=== PATIENT | male | born 1975 | race Caucasian/White ===

== ENCOUNTER 2018-06-02 13:52 | Observation (INO) | payer OTHER, SELFPAY ==
[2018-06-02] VITALS (7 sets, daily range): BP systolic 104–152; BP diastolic 64–89; PULSE 75–90; RESP 15–20; TEMP 36.7–36.8; O2SAT 97–99; BMI 23.5
--- NOTE | 2018-06-02 14:07 | DI.CT.S_ITS ---
PROCEDURE: CT HEAD/BRAIN WO CON INDICATIONS: 30 second episode of being unable to talk this AM TECHNIQUE: Noncontrast 4.5 mm thick angled axial sections acquired from the foramen magnum to the vertex, with coronal and sagittal reformats. For radiation dose reduction, the following was used: automated exposure control, adjustment of mA and/or kV according to patient size. COMPARISON: None. FINDINGS: Image quality: Excellent. CSF spaces: Basal cisterns are patent. No extra-axial fluid collections. Ventricles are normal in size and shape. Brain: No midline shift. No intracranial masses or hemorrhage. Sauer-white matter interface is normal. Skull and face: Calvarium and visualized facial bones are intact, without suspicious lesions. Sinuses: Visualized sinuses and mastoids are clear. IMPRESSION: No acute intracranial hemorrhage is seen. Unremarkable noncontrast head CT. If there is strong clinical suspicion for an acute stroke, please consider an MRI for further evaluation, as it is more sensitive (assuming that there is no contraindication to MRI). Dictated by: Odell Ying M.D. on 06/02/2018 at 13:27 Approved by: Odell Ying M.D. on 06/02/2018 at 13:28
--- NOTE | 2018-06-02 14:14 | ED.NEUROSD ---
HPI - Neuro Symptoms/Deficit General Chief Complaint: Neuro Symptoms/Deficit Stated Complaint: SUSPECTED TIA THIS MORNING Time Seen by Provider: 06/02/18 14:13 Source: patient Mode of arrival: ambulatory Limitations: no limitations History of Present Illness HPI Narrative: Patient is an otherwise healthy 42-year-old male here for evaluation of concerns for a TIA earlier this morning. Patient states that he was talking on the phone to a client when he suddenly had an episode where he had problems speaking. He also states that he felt very confused at this time. He states that he knew the words he wanted to say but was unable to speak them. It was also reported that the patient's thought that he was slurring his words. This came from the patient as because his was not at bedside. Patient states that the whole episode lasted less than 1 min. He gave the phone that he was talking on to his . States that he laid down on the ground. He gradually all of his symptoms resolved. States that he has never had anything like this before. States that during the time he had no other symptoms such as headache, vertigo, chest pain, palpitations, shortness of breath, vision changes. No numbness or tingling in upper lower extremities. Related Data Home Medications Medication Instructions Recorded Confirmed Vitamin D3 1 cap PO DAILY 06/02/18 06/02/18 ibuprofen 200 mg PO PRN PRN 06/02/18 06/02/18 loratadine [Claritin] 10 mg PO DAILY PRN 06/02/18 06/02/18 magnesium 1 tab PO DAILY 06/02/18 06/02/18 Allergies Allergy/AdvReac Type Severity Reaction Status Date / Time No Known Drug Allergies Allergy Verified 06/02/18 14:01 Review of Systems Constitutional Denies fatigue, Denies fever(s) and Denies headache(s) ENT Ears, Nose, Mouth, and Throat: Denies vertigo, Denies dizziness and Denies headache(s) Cardiovascular Denies chest pain, Denies palpitations and Denies dyspnea Respiratory Denies dyspnea Gastrointestinal Gastrointestinal: Denies abdominal pain, Denies nausea and Denies vomiting Genitourinary Denies dysuria Musculoskeletal Denies myalgias and Denies arthralgias Integumentary/Breasts Denies lesions and Denies rash Neurologic Reports abnormal speech, Reports confusion, Denies vertigo, Denies dizziness, Denies headache(s), Denies convulsions and Denies seizure-like activity Psychiatric Reports confusion Endocrine Denies fatigue and Denies palpitations Hematologic/Lymphatic Denies easy bleeding and Denies easy bruising PFS Medical History Bulge of cervical disc without myelopathy (Acute) Migraine headache (Acute) Vasovagal syncope (Acute) Family History Grandmother Cancer Vascular disease Social History household members: spouse Smoking Status: Never smoker Exam Initial Vital Signs Initial Vital Signs: Vital Signs Temperature 98.2 F 06/02/18 13:55 Pulse Rate 90 06/02/18 13:55 Respiratory Rate 18 06/02/18 13:55 Blood Pressure 152/89 H 06/02/18 13:55 Pulse Oximetry 98 06/02/18 13:55 Const General: cooperative, healthy appearing, comfortable, well developed, well groomed and acute distress Orientation: alert, awake and oriented x3 HENMT Head: normal to inspection and normocephalic Eyes Pupils: PERRL EOM: EOM intact bilaterally Resp Effort & Inspection: normal respiratory effort Auscultation: clear to auscultation bilaterally Cardio Rate: regular rate Rhythm: regular rhythm Pulses: radial pulses present GI Inspection: non-distended Palpation: soft, No firm and No tender Back/Spine/Pelvis Back: No CVA tenderness Skin Lesions: no lesions Neuro General: alert, awake and oriented x3 Cranial Nerves: CN's II-XI intact bilaterally Cognition: normal cognition Speech: speech normal Gait: normal gait Motor: muscle tone normal throughout Sensory Exam: no sensory deficits noted Extrem General: normal to inspection and capillary refill normal Psych Appearance: grossly normal and well kempt Course Orders Ordered: ED Orders 06/02/18 14:07 CT head/brain wo con Stat 06/02/18 14:30 Complete Blood Count AUTO DIFF Stat Comprehensive Metabolic Panel Stat Lipase Stat 06/02/18 14:44 EKG-12 Lead Stat 06/02/18 17:07 Education, smoking cessation ONGOING 06/03/18 05:00 Lipid Panel Routine Thyroid Stimulating Hormone Routine Acetaminophen (Tylenol) 650 mg PO Q6HR PRN PRN Reason: As Needed for Fever/Mild Pain Hydrocodone Bitart/Acetaminophen ([place] 5/325) 1 tab PO Q4HR PRN PRN Reason: Pain, Moderate (4-6) Aspirin (Aspirin Ec) 325 mg PO DAILY [facility] Enoxaparin Sodium (Lovenox) 40 mg SUBCUT DAILY [facility] Dextrose/Sodium Chloride (Dextrose 5%-0.45% Ns) 1,000 mls @ 100 mls/hr IV CONT TIERA Last Admin: 06/02/18 17:36 Dose: 100 mls/hr Ondansetron HCl (Zofran) 4 mg IV Q8HR PRN PRN Reason: Nausea And Vomiting Discontinued Medications Aspirin (Aspirin) 325 mg PO NOW ONE Stop: 06/02/18 15:32 Last Admin: 06/02/18 15:43 Dose: 325 mg Vital Signs - 8 hr 06/02/18 13:55 06/02/18 14:30 06/02/18 15:30 Temperature 98.2 F Pulse Rate 90 76 77 Respiratory Rate 18 15 16 Blood Pressure 152/89 H Blood Pressure [Left Arm] 145/87 H 104/84 Pulse Oximetry 98 98 99 06/02/18 17:10 06/02/18 17:21 06/02/18 19:40 Temperature 98.2 F 98.2 F 98.1 F Pulse Rate 75 75 80 Respiratory Rate 20 20 20 Blood Pressure 144/86 H 144/86 H 121/64 Blood Pressure [Left Arm] Pulse Oximetry 98 99 97 MDM - Neuro Symptoms/Deficit Lab Data Attestation: I reviewed the patient's lab results. Result diagrams: 06/02/18 14:30 06/02/18 14:30 Lab Results 06/02/18 06/02/18 Range/Units 14:30 14:30 WBC 6.1 (4.5-11.0) X10^3/uL RBC 4.87 (4.5-5.9) X10^6/uL Hgb 14.7 (13.5-17.5) g/dL Hct 43.5 (41-53) % MCV 89.4 (80-100) fL MCH 30.2 (26-34) PG MCHC 33.7 (30-36) % RDW 13.8 (11.6-14.8) % Plt Count 208 (150-400) X10^3/uL Neut % (Auto) 72.7 (50-75) % Lymph % (Auto) 17.9 L (25-40) % [place] % (Auto) 7.6 (3-14) % Eos % (Auto) 0.9 L (2-4) % Baso % (Auto) 0.9 (0-2) % Neut # (Auto) 4500 (1039-7938) /uL Sodium 145 (137-145) mmol/L Potassium 4.0 (3.4-5.1) mmol/L Chloride 103 (98-107) mmol/L Carbon Dioxide 31 (22-32) mmol/L BUN 21 H (9-20) mg/dL Creatinine 0.80 (0.66-1.25) mg/dL Estimated GFR > 60.0 (>60) mL/min BUN/Creatinine Ratio 26.3 H (6-22) Glucose 90 (70-100) mg/dL Calcium 9.3 (8.4-10.2) mg/dL Total Bilirubin 0.6 (0.2-1.3) mg/dL AST 26 (17-59) IU/L ALT 34 (21-72) IU/L Alkaline Phosphatase 45 (38-126) U/L Total Protein 7.0 (6.3-8.2) g/dL Albumin 4.6 (3.5-5.0) g/dL Globulin 2.4 (1.7-4.1) g/dL Albumin/Globulin Ratio 1.9 (1.0-2.8) Lipase 109 (23-300) U/L Imaging Data CT scan - head: Radiologist's impression: PROCEDURE: CT HEAD/BRAIN WO CON INDICATIONS: 30 second episode of being unable to talk this AM TECHNIQUE: Noncontrast 4.5 mm thick angled axial sections acquired from the foramen magnum to the vertex, with coronal and sagittal reformats. For radiation dose reduction, the following was used: automated exposure control, adjustment of mA and/or kV according to patient size. COMPARISON: None. FINDINGS: Image quality: Excellent. CSF spaces: Basal cisterns are patent. No extra-axial fluid collections. Ventricles are normal in size and shape. Brain: No midline shift. No intracranial masses or hemorrhage. Sauer-white matter interface is normal. Skull and face: Calvarium and visualized facial bones are intact, without suspicious lesions. Sinuses: Visualized sinuses and mastoids are clear. IMPRESSION: No acute intracranial hemorrhage is seen. Unremarkable noncontrast head CT. If there is strong clinical suspicion for an acute stroke, please consider an MRI for further evaluation, as it is more sensitive (assuming that there is no contraindication to MRI). Dictated by: Odell Ying M.D. on 06/02/2018 at 13:27 Approved by: Odell Ying M.D. on 06/02/2018 at 13:28 [facility] Narrative Medical decision making narrative: Patient with a completely normal neuro exam the time of my exam. His symptoms today are somewhat concerning for a TIA. He stated that he did realize that he was having problems speaking and was confused. Symptoms all resolved in less than a minute. His head CT was unremarkable. He was given an aspirin here in the emergency department. I did discuss with Dr. Arshad with Internal Medicine or admit for a TIA workup. I did discuss this with the patient who initially had some reservations about being admitted but then agreed to the admission. Discharge Plan Departure Patient Disposition: Admitted as Observation Clinical Impression: TIA (transient ischemic attack) Discharge Date/Time: 06/02/18 17:05 Interventions: ED Discharge Assessment Last Done: 06/02/18 17:04 Admit Date/Time: 06/02/18 16:01 Admit Provider: Lucretia Arshad
[2018-06-02 14:42] LABS: Add Manual Diff / Slide Review NO; Basophils Percent Auto 0.9 % (0-2); Eosinophils Percent Auto 0.9 % (2-4); Hematocrit 43.5 % (41-53); Hemoglobin 14.7 g/dL (13.5-17.5); Lymphocytes Percent Auto 17.9 % (25-40); Mean Corpuscular HGB Conc 33.7 % (30-36); Mean Corpuscular Hemoglobin 30.2 PG (26-34); Mean Corpuscular Volume 89.4 fL (80-100); Monocytes Percent Auto 7.6 % (3-14); Neutrophils Absolute Auto 4500 /uL (3000-5900); Neutrophils Percent Auto 72.7 % (50-75); Platelet Count 208 X10^3/uL (150-400); Red Blood Cell Count 4.87 X10^6/uL (4.5-5.9); Red Cell Distribution Width 13.8 % (11.6-14.8); White Blood Cell Count 6.1 X10^3/uL (4.5-11.0)
[2018-06-02 14:57] LABS: Alanine Aminotransferase 34 IU/L (21-72); Albumin 4.6 g/dL (3.5-5.0); Albumin Globulin Ratio 1.9 (1.0-2.8); Alkaline Phosphatase 45 U/L (38-126); Aspartate Aminotransferase 26 IU/L (17-59); BUN Creatinine Ratio 26.3 (6-22); Bilirubin Total 0.6 mg/dL (0.2-1.3); Blood Urea Nitrogen 21 mg/dL (9-20); Calcium 9.3 mg/dL (8.4-10.2); Carbon Dioxide 31 mmol/L (22-32); Chloride 103 mmol/L (98-107); Estimated Glomerular Filt Rate > 60.0 mL/min (>60); Globulin 2.4 g/dL (1.7-4.1); Glucose 90 mg/dL (70-100); HEMOLYSIS < 15 (0-50); Lipase 109 U/L (23-300); Sodium 145 mmol/L (137-145)
[2018-06-02] MEDS: ASPIRIN 325 MG TABLET PO (15:43)
--- NOTE | 2018-06-02 15:47 | PC.NURSE ---
At home while making a phone call the pt felt as though he was suddenlynot able to follow the conversation nor was he able to get his words out. Pt handed the phone to his . Shortly after sx resolved and then he just felt like he did prior to having a syncopal event. Pt denied any sx upon arrival to ED.
--- NOTE | 2018-06-02 17:13 | P.HP_ITS ---
History of Present Illness Date Patient Seen: 06/02/18 Chief complaint: SUSPECTED TIA THIS MORNING Narrative: The patient is a 42-year-old previously healthy male who was in his usual state of health until earlier this morning. Patient was on the phone standing speaking to a client when he was unable to get the words out. He reports initially he felt a twitch of his right cheek. He then was trying to speak and unable to get the words out. He handed the phone to his . He then laid down for about 30 sec with complete resolution of his symptoms. He had no associated headache. He had no blurred vision or double vision. Patient had no slurring of his speech. He had no numbness tingling or weakness in his arms or legs. He did not lose consciousness. He denies any aura. He has a history of migraine headaches and notes this is very different. He also has a history of vasovagal syncope and states this is different as well. The patient slept fairly well last night. Does report some neck discomfort due to a bulging disc. He has never had these symptoms previously. He had no witnessed tonic-clonic activity. He had no loss of his bowel or bladder function. Patient had a HEAD CT which was unremarkable. Patient History Medical History Bulge of cervical disc without myelopathy (Acute) Migraine headache (Acute) Family & Social History Safety & Behavioral: Feels Safe in Current Yes Environment Tobacco & Substance use: Smoking Status Never smoker alcohol intake frequency holiday/special occasion Substance Use Type marijuana Meds Home Medications Medication Instructions Recorded Confirmed Type Vitamin D3 1 cap PO DAILY 06/02/18 06/02/18 History ibuprofen 200 mg PO PRN PRN 06/02/18 06/02/18 History loratadine [Claritin] 10 mg PO DAILY PRN 06/02/18 06/02/18 History magnesium 1 tab PO DAILY 06/02/18 06/02/18 History Allergies Allergy/AdvReac Type Severity Reaction Status Date / Time No Known Drug Allergies Allergy Verified 06/02/18 14:01 Review of Systems Review of Systems All systems reviewed & are unremarkable except as noted in HPI and below Exam Vital Signs (past 8 hours): - 06/02/18 13:55 06/02/18 14:30 06/02/18 15:30 Temperature 98.2 F Pulse Rate 90 76 77 Respiratory Rate 18 15 16 Blood Pressure 152/89 H Blood Pressure [Left Arm] 145/87 H 104/84 Pulse Oximetry 98 98 99 Oxygen Delivery Method Room Air Narrative Exam Narrative: Pleasant male in No Acute Distress HEENT: NC/AT, PERRLA, EOMI, Oropharynx clear Neck : supple, no adenopathy, thyromegaly, no carotid bruits Lungs: Clear to auscultation CV: RRR nl Sl S2 Abd: soft/ non tender/ non distended, no HSM EXT: no edema Skin: no lesions Neuro: Cranial nerves intact, strength symmetric and equal, sensation in tact, no pronator drift, finger to nose intact, reflexes brisk and equal Psych: no hallucinations, delusions, tics Objective Labs Result Diagrams: 06/02/18 14:30 06/02/18 14:30 Labs: Laboratory Results - last 24 hr 06/02/18 06/02/18 14:30 14:30 WBC 6.1 RBC 4.87 Hgb 14.7 Hct 43.5 MCV 89.4 MCH 30.2 MCHC 33.7 RDW 13.8 Plt Count 208 Neut % (Auto) 72.7 Lymph % (Auto) 17.9 L [place] % (Auto) 7.6 Eos % (Auto) 0.9 L Baso % (Auto) 0.9 Neut # (Auto) 4500 Sodium 145 Potassium 4.0 Chloride 103 Carbon Dioxide 31 BUN 21 H Creatinine 0.80 Estimated GFR > 60.0 BUN/Creatinine Ratio 26.3 H Glucose 90 Calcium 9.3 Total Bilirubin 0.6 AST 26 ALT 34 Alkaline Phosphatase 45 Total Protein 7.0 Albumin 4.6 Globulin 2.4 Albumin/Globulin Ratio 1.9 Lipase 109 Assessment & Plan (1) TIA (transient ischemic attack): Problem details: Will check MRI of brain, MRA of neck, Echo with contrast to r/o PFO will check lipid profile continue Asa Check blood pressure Current visit: Yes Status: Acute (2) History of migraine: Problem details: will follow Current visit: Yes Status: Acute Plan: Assessment/Plan Narrative: Full code Will follow up on studies tomorrow for further recommendations
[2018-06-02] MEDS: DEXTROSE 5%-0.45% NS 1,000 ML 100 ML IV (17:36)
--- NOTE | 2018-06-02 18:32 | PC.NURSE ---
ADMISSION Received pt at approximately 1710 via wheelchair, accompanied by ED LAP MAKER. A&Ox3, no acute neuro deficits noted, speech clear and intact. independent of ADLs. telemetry monitoring maintained. oriented pt to room anc call light.
--- NOTE | 2018-06-03 | DI.MRI.S_ITS ---
PROCEDURE: MR ANGIO NECK W CON INDICATIONS: TIA TECHNIQUE: Axial and sagittal TruFISP through the neck. Coronal dynamic MRA after the administration of contrast in the arterial and venous phases, with rotating 3-dimensional maximum intensity projection (MIP) reformats constructed from subtraction images. COMPARISON: None. FINDINGS: Image quality: Excellent. Carotid system: Great vessels demonstrate a conventional anatomy as they arise from the aortic arch. The origins of the common carotid arteries appear normal. The calibers and courses of the common carotid arteries are likewise normal. The carotid bifurcations appear normal bilaterally. The internal carotid arteries are widely patent up to the [place] of [place]. Posterior circulation: The origins of the vertebral arteries are unremarkable. The more superior portions of the vertebral arteries demonstrate normal course and caliber. Vertebral arteries join to form a normal appearing basilar artery. Miscellaneous: Subclavian arteries are patent throughout. Pre-contrast images through the neck demonstrate no soft tissue abnormalities. IMPRESSION: 1. Normal MR angiogram of the neck. 2. No vascular occlusion, vascular stenosis or vascular dissection. Any quantitative measurements of stenosis were performed using NASCET criteria. Dictated by: Gilda Guzman MD, PhD on 06/03/2018 at 12:15 Approved by: Gilda Guzman MD, PhD on 06/03/2018 at 12:17
--- NOTE | 2018-06-03 | DI.ECHO.S_ITS ---
[facility] +---------+ : : [address] : : : : [id number] : : : : Phone: [phone]+ Echocardiogram Report + + :Name: DEVON LUNDBERG Study Date: 06/03/2018 Height: 76 in : :[facility] Weight: 188 lb : : Gender: Male BSA: 2.2 m2 : :: 1975 Age: 42 yrs BP: 111/66 mmHg: :Reason For Study: TIA : :Ordering Physician: Dana : :Hospitalist Performed By: Nicolle Nicole : :Referring: DAMARI SEWELL : + + Interpretation Summary 1. Normal left ventricular size, wall thickness and systolic function. 2. Normal right ventricular size and systolic function. 3. No valvular pathology appreciated 4. Positive saline contrast study documenting a right to left interatrial shunt. No old study Procedure: A two-dimensional transthoracic echocardiogram with color flow and Doppler was performed. The study quality was technically adequate. A saline contrast injection was performed to assess for cardiac shunting. There is no prior echocardiogram noted for this patient. The patient was in normal sinus rhythm during the exam. Left Ventricle: The left ventricle is normal in size. There is normal left ventricular wall thickness. There is no ventricular septal defect visualized. The ejection fraction is estimated to be 55-60%. No focal wall motion abnormalities appreciated. Diastolic parameters suggest probable normal left ventricular diastolic function and normal filling pressures. Right Ventricle: The right ventricle is normal in size and function. Atria: Both atria are normal in size. Injection of contrast documented an interatrial shunt at rest and with Valsalva. Mitral Valve: The mitral valve is normal in structure and function. There is trace mitral regurgitation. Aortic Valve: The aortic valve is trileaflet. The aortic valve opens well. No aortic regurgitation is present. Tricuspid Valve: The tricuspid valve leaflets are thin and pliable. No tricuspid regurgitation. Pulmonary artery pressures cannot be estimated because of the lack of a measurable TR jet velocity. Pulmonic Valve: The pulmonic valve is not well seen, but is grossly normal. Great Vessels: The aortic root is at the upper limits of normal in size. The ascending aorta is at the upper limits of normal in size. The aortic arch is normal in size. The pulmonary is not well visualized. The IVC is of normal diameter and collapses greater than 50% with a sniff. This suggests a low right atrial pressure of 3 mm Hg. Pericardium/ Pleura There is no pericardial effusion. MMode/2D Measurements & Calculations LVIDd: 4.4 cm LVOT diam: 2.5 cm LVIDs: 3.2 cm Ao root diam: 4.0 cm FS: 26.6 % asc Aorta Diam: 3.5 cm IVSd: 0.71 cm Ao Arch Diam (Prox Trans): 2.7 cm LVPWd: 0.93 cm LV lopez. diameter/BSA (cm/m^2): 2.0 LV sys. diameter/BSA (cm/m^2): 1.5 LA A2 area: 15.9 cm2 RA long axis: 4.9 cm LA A4 area: 15.0 cm2 RA area: 14.7 cm2 LA length (vol): 4.6 cm RA vol: 37.7 ml LA vol: 44.7 ml RA : 17.5 ml/m2 LA vol index: 20.7 ml/m2 IVC diam: 1.8 cm RVD1 (basal): 2.9 cm TAPSE: 2.6 cm Doppler Measurements & Calculations Ao V2 max: 111.5 cm/sec LVOT Max Rafal: 98.9 cm/sec Ao V2 mean: 73.7 cm/sec LV V1 max P.9 mmHg Ao max P.0 mmHg LV V1 VTI: 18.3 cm Ao mean P.5 mmHg VICKY(I,D): 5.1 cm2 Ao V2 VTI: 18.0 cm VICKY(V,D): 4.4 cm2 sev ratio: 1.0 VICKY indexed to BSA (cm^2/m^2): 2.4 MV E max rafal: 63.1 cm/sec PA V2 max: 73.4 cm/sec MV A max rafal: 67.8 cm/sec PA V2 mean: 54.9 cm/sec MV E/A: 0.93 PA mean P.3 mmHg Med Peak E' Rafal: 9.6 cm/sec PA Accel Time: 0.12 sec E/E' med: 6.6 Lat Peak E' Rafal: 11.8 cm/sec E/E' lat: 5.3 E/e' average: 6.0 MV dec time: 0.14 sec MV P1/2t: 41.9 msec MV P1/2t max rafal: 63.1 cm/sec MVA(P1/2t): 5.3 cm2 Reading Physician:WILL
--- NOTE | 2018-06-03 | DI.MRI.S_ITS ---
PROCEDURE: MR HEAD/BRAIN WO/W CON INDICATIONS: TIA TECHNIQUE: Noncontrast axial T1 spin echo, axial T2 fast spin echo, sagittal and axial FLAIR, coronal T2 fast spin echo, axial gradient echo, axial diffusion and ADC through the brain. After the administration of contrast, axial and coronal 3D VIBE or T1 spin echo with fat saturation through the brain. COMPARISON: [facility], CT, CT HEAD/BRAIN WO CON, 06/02/2018, 14:04. FINDINGS: Image quality: Excellent. CSF Spaces: Basal cisterns are patent. No extra-axial fluid collections. Ventricles are normal in size and shape. Brain: No midline shift. No intracranial bleeds or masses. 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 No abnormal intracranial enhancement. The brainstem appears normal. Diffusion-weighted images demonstrate no acute ischemic insults. No chronic ischemic insults. Normal intravascular flow voids are present. Skull and face: Calvarial marrow is normal in signal. Orbits appear normal. Sinuses: Small mucous retention cyst versus polyp noted in the left maxillary sinus. The mastoids appear clear. IMPRESSION: 1. No acute intracranial disease process. 2. No areas of acute or chronic infarction. 3. No intracranial hemorrhage. 4. No suspicious post contrast enhancement. 5. 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 Recommend follow up MRI of the brain with and without contrast in 6 months. Dictated by: Gilda Guzman MD, PhD on 06/03/2018 at 12:07 Approved by: Gilda Guzman MD, PhD on 06/03/2018 at 12:15
[2018-06-03 00:10] VITALS: BP 117/60; PULSE 69; RESP 16; TEMP 36.6; O2SAT 98
[2018-06-03] MEDS: DEXTROSE 5%-0.45% NS 1,000 ML 100 ML IV (03:59)
[2018-06-03 05:49] LABS: Cholesterol 126 mg/dL (140-199); HDL Cholesterol 41 mg/dL (40-60); LDL Cholesterol Calculated 73 mg/dL (<100); Triglycerides 60 mg/dL (35-150)
[2018-06-03 06:43] LABS: Thyroid Stimulating Hormone 0.99 uIU/mL (0.47-4.68)
[2018-06-03 07:00] VITALS: O2SAT 98
[2018-06-03 08:00] VITALS: BP 111/66; PULSE 80; RESP 18; TEMP 36.9; O2SAT 100
[2018-06-03] MEDS: ASPIRIN EC 325 MG TABLET PO (08:27)
--- NOTE | 2018-06-03 13:26 | PM.DS.1 ---
History of Present Illness Chief complaint: SUSPECTED TIA THIS MORNING Narrative: The patient is a 42-year-old previously healthy male who was in his usual state of health until earlier this morning. Patient was on the phone standing speaking to a client when he was unable to get the words out. He reports initially he felt a twitch of his right cheek. He then was trying to speak and unable to get the words out. He handed the phone to his . He then laid down for about 30 sec with complete resolution of his symptoms. He had no associated headache. He had no blurred vision or double vision. Patient had no slurring of his speech. He had no numbness tingling or weakness in his arms or legs. He did not lose consciousness. He denies any aura. He has a history of migraine headaches and notes this is very different. He also has a history of vasovagal syncope and states this is different as well. The patient slept fairly well last night. Does report some neck discomfort due to a bulging disc. He has never had these symptoms previously. He had no witnessed tonic-clonic activity. He had no loss of his bowel or bladder function. Patient had a HEAD CT which was unremarkable. 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 He had a Head CT which was negative. The patient had no further neurological symptoms, His neuro exam was normal He underwent MRI of the brain which was unremarkable except for a possible pineal cyst vs. pinealcytoma. THE MRA of the neck was negative. His echo with bubble study is pending at the time of discharge. The patient was deemed appropriate for discharge home. Patient will follow up with his PCP at [facility] [place] for Echo results. Status at Discharge Cognitive/behavioral status at discharge: at baseline Functional status at discharge: independent ambulation Overall status at discharge: patient is back to baseline Time Spent with Patient Less than 30 minutes Exam Vital Signs (past 8 hours): - 06/03/18 07:00 06/03/18 08:00 Temperature 98.5 F Pulse Rate 80 Respiratory Rate 18 Blood Pressure 111/66 Pulse Oximetry 98 100 Oxygen Delivery Method Room Air Oxygen Flow Rate 0 Narrative Exam Narrative: pleasant male speaking in complete sentences Speech is normal He is able to move all extremities His gait is normal NO facial droop Objective Labs Result Diagrams: 06/02/18 14:30 06/02/18 14:30 Labs: Laboratory Results - last 24 hr 06/02/18 06/02/18 06/03/18 14:30 14:30 05:12 WBC 6.1 RBC 4.87 Hgb 14.7 Hct 43.5 MCV 89.4 MCH 30.2 MCHC 33.7 RDW 13.8 Plt Count 208 Neut % (Auto) 72.7 Lymph % (Auto) 17.9 L [place] % (Auto) 7.6 Eos % (Auto) 0.9 L Baso % (Auto) 0.9 Neut # (Auto) 4500 Sodium 145 Potassium 4.0 Chloride 103 Carbon Dioxide 31 BUN 21 H Creatinine 0.80 Estimated GFR > 60.0 BUN/Creatinine Ratio 26.3 H Glucose 90 Calcium 9.3 Total Bilirubin 0.6 AST 26 ALT 34 Alkaline Phosphatase 45 Total Protein 7.0 Albumin 4.6 Globulin 2.4 Albumin/Globulin Ratio 1.9 Triglycerides 60 Cholesterol 126 L LDL Cholesterol, Calc 73 HDL Cholesterol 41 Lipase 109 TSH 06/03/18 05:12 WBC RBC Hgb Hct MCV MCH MCHC RDW Plt Count Neut % (Auto) Lymph % (Auto) [place] % (Auto) Eos % (Auto) Baso % (Auto) Neut # (Auto) Sodium Potassium Chloride Carbon Dioxide BUN Creatinine Estimated GFR BUN/Creatinine Ratio Glucose Calcium Total Bilirubin AST ALT Alkaline Phosphatase Total Protein Albumin Globulin Albumin/Globulin Ratio Triglycerides Cholesterol LDL Cholesterol, Calc HDL Cholesterol Lipase TSH 0.99 Discharge Plan Discharge Plan Patient Disposition: Home Discharge comment: F/U with [facility] for Echo results, repeat MRI of brain in 6 months. Referral to Neurology to r/o seizures as well. Discharge Med Rec/Prescriptions Prescriptions: New aspirin 81 mg tablet,chewable 81 mg PO DAILY Qty: 30 RF: 0 Continue ibuprofen 200 mg Tablet 200 mg PO PRN PRN (Reason: pain) RF: 0 loratadine [Claritin] 10 mg Tablet 10 mg PO DAILY PRN (Reason: Allergy Symptoms) RF: 0 Vitamin D3 1 cap PO DAILY RF: 0 magnesium 1 tab PO DAILY RF: 0 Provider Discharge Instructions Diet: Regular Activity: as tolerated Visit Report/Discharge Packet Visit Report Forms: Stroke Signs & Symptoms Discharge Data Attending Provider: Lucretia Arshad Admit Date/Time: 06/02/18 16:01 Quality VTE Deep Vein Thrombosis/Pulmonary Embolism Present on Admission: No
--- NOTE | 2018-06-03 13:54 | CM.DANOTE ---
Addendum entered by Malinda Parr LPN 06/03/18 14:04: Went to room to check in with pt. He is noted to be in [place], dressed and ready to leave for the ferry back to [place]. No concerns re the d/c are identified by the care team members. Original Note: Discharge Planning/Care Management DCP: assessment: case received, EMR reviewed. Case discussed in Team Meeting. Pt is a 42 year old male who admitted yesterday late afternoon to care of hospitalist team. Payer: [facility]. PCP: at the [facility]. Dr. Arshad noted that she was working pt up for a possible TIA and she expected pt will go home later today if all is ok. Noted now that a d/c order for home is noted. CM Discharge Assessment Start: 06/03/18 13:47 Freq: Status: Active Protocol: Document 06/03/18 13:48 ITV (Rec: 06/03/18 13:53 ITV [id number]) Discharge Planning Assessment Advance Directives? No History Provided By Patient Prior Living Arrangements House Household Members spouse Independent with ADL's Yes Is patient alert and oriented? Yes Review Status In Process Next Review Type Continued Stay Review
== END 2018-06-03 14:05 | disposition home or self-care (01) ==
LOC: ED 15:30 → AC 16:02
PROVIDERS: Admitting Provider Internal Medicine; Emergency Provider Emergency Medicine; Visit Provider Internal Medicine
DX: G45.9 Transient cerebral ischemic attack, unspecified (principal); R29.818 Other symptoms and signs involving the nervous system; R47.1 Dysarthria and anarthria
CPT/HCPCS: 36415; 36591; 70450; 70548; 70553; 80053; 80061; 83690; 84443; 85025; 93005; 93306; 99283; 99285; 99291; G0378; A9579